=== PATIENT | male | born 1950 | race Caucasian/White ===

== ENCOUNTER 2018-10-19 08:37 | Outpatient (CLI) | payer BC ==
[2018-10-19 10:14] LABS: #Eosinphils 0.1 thou/uL (0.0-0.7); #Lymphocytes 1.4 thou/uL (1.20-3.40); #Monocytes 0.3 thou/uL (0.11-0.59); #Neutrophils 2.9 thou/uL (1.40-6.50); %Basophils 0.6 % (0.0-1.0); %Eosinophils 2.8 % (0.0-10.0); %Lymphocytes 29.1 % (21.0-51.0); %Monocytes 7.1 % (0.0-10.0); %Neutrophils 60.3 % (42.0-75.0); Hemoglobin 14.5 g/dL (14.0-18.0); Mean Corpuscular HGB CONC 35.3 g/dL (32.0-36.0); Mean Corpuscular Hemoglobin 30.5 pg (27.0-31.0); Mean Corpuscular Volume 86.4 fL (78.0-98.0); Mean Platelet Volume 7.5 fL (7.4-10.4); Platelet Count 139 thou/uL (130-400); RBC Distribution Width 11.8 % (11.5-14.5); Red Blood Cell (RBC) Count 4.75 mill/uL (4.70-6.10); White Blood Cell (WBC) Count 4.8 thou/uL (4.8-10.8)
[2018-10-19 10:16] LABS: Bilirubin Negative (Negative); Blood, Urine Negative (Negative); Glucose, Urine (Dipstick) Negative (Negative); Leukocyte Negative (Negative); Nitrite Negative (Negative); Protein, Urine (Dipstick) Negative (Neg-Trace); Urobilinogen 0.2 mg/dL (0.2-1.0)
[2018-10-19 10:19] LABS: Anion Gap 15 mmol/L (10-20); BUN (Urea Nitrogen) 19 mg/dL (8.4-25.7); Calc. Creatinine Clearance 0 mL/min (70-130); Calcium 9.2 mg/dL (7.8-10.44); Carbon Dioxide 21 mmol/L (23-31); Chloride 105 mmol/L (98-107); Estimated GFR-MDRD Greater than 90; Glucose 160 mg/dL (80-115); Sodium 137 mmol/L (136-145)
[2018-10-19 10:19] LABS: Clarity CLEAR (Clear)
[2018-10-19 10:26] LABS: Bacteria/HPF None Seen HPF (None Seen); Hyaline Casts/LPF NONE SEEN LPF (0-3 Hyaline); RBC/HPF None Seen HPF (0-3); Squamous Epithelial 0-3 HPF (0-3); WBC/HPF None Seen HPF (0-3)
--- NOTE | 2018-10-21 16:35 | EKG ---
Test Reason : Blood Pressure : / mmHG Vent. Rate : 064 BPM Atrial Rate : 064 BPM P-R Int : 174 ms QRS Dur : 102 ms QT Int : 448 ms P-R-T Axes : 032 079 057 degrees QTc Int : 462 ms Normal sinus rhythm Incomplete right bundle branch block Borderline ECG When compared with ECG of 30-JUL-2016 09:59, Nonspecific T wave abnormality no longer evident in Inferior leads Confirmed by DR. Anupama FUNES ([id number]) on 10/21/2018 4:35:00 PM Referred By: JOLLY Confirmed By:DR. Anupama FUNES
== END 2018-10-19 08:38 | disposition home or self-care (01) ==
LOC: LABBT 08:37
PROVIDERS: ATTEND Urology
DX: Z01.818 Encounter for other preprocedural examination (principal); N20.0 Calculus of kidney; N40.1 Benign prostatic hyperplasia with lower urinary tract symptoms
CPT/HCPCS: 80048; 81001; 85025; 87086; 93005; 93010

== ENCOUNTER 2018-10-21 05:56 | Day surgery (SDC) | payer BC ==
[2018-10-19 08:55] VITALS: BMI 35.9
--- NOTE | 2018-10-20 08:47 | HP ---
HISTORY OF PRESENT ILLNESS: The patient is a 67-year-old male, who has a long history of pain and triggering in his left index, middle, and little fingers. He has had persistent symptoms despite rest, restriction of activities, and previous injections. The patient is now interfering with day-to-day activities. He has had previous left ring finger trigger finger release in the past with good results. PAST HISTORY: Please see old chart. The patient is currently undergoing workup for microscopic hematuria by Dr. Munoz and will have a cystoscopy under the same anesthetic today for his left hand. He does have a history of cardiovascular disease with previous stent. He has no other major medical problems. CURRENT MEDICATIONS: Include; 1. Crestor. 2. Lovaza. 3. Thyroid. 4. Lisinopril. 5. Tylenol with Codeine. ALLERGIES: HE HAS NO KNOWN ALLERGIES. FAMILY HISTORY: Otherwise, unremarkable. SOCIAL HISTORY: Otherwise, unremarkable. REVIEW OF SYSTEMS: Otherwise, unremarkable. PHYSICAL EXAMINATION: GENERAL: Reveals a healthy heavyset male. HEENT: Unremarkable. NECK: Supple. CHEST: Clear. HEART: Regular rate and rhythm. ABDOMEN: Soft and nontender. RECTAL AND GENITAL: Deferred. EXTREMITIES: Pertinent findings related to the left hand, he has a healed incision over the palmar aspect of the ring finger A1 melody. There is tenderness over the flexor tendon sheath and A1 pulleys of the index, middle, and little fingers. There is full range of motion. There is triggering with motion of the index, middle, and little fingers. NEUROVASCULAR: Intact. There is good capillary refill. IMPRESSION: Trigger fingers; left index, middle, and little fingers. PLAN: Trigger finger release of the left index, middle, and little fingers under the same anesthetic as cystoscopy Dr. Munoz. The nature of the surgery, length of recovery, and potential complications such as infection, loss of motion, digital nerve injury, recurrence, and need for additional treatment and repeat surgery have been discussed in detail. Job ID: [id number]
[2018-10-21] MEDS ORDERED: Fentanyl 100 MCG/2 ML VIAL ONE (06:58)
[2018-10-21] MEDS ORDERED: Iothalamate Meglumine 60% 50 ML VIAL FS ONE (07:04)
[2018-10-21] MEDS ORDERED: Lidocaine 1% (PF) 30 ML VIAL ONE (07:04)
--- NOTE | 2018-10-21 11:09 | OP ---
DATE OF PROCEDURE: 10/21/2018 SERVICE: Urology. PREOPERATIVE DIAGNOSIS: BPH. POSTOPERATIVE DIAGNOSIS: BPH. PROCEDURE PERFORMED: Transrectal ultrasound with cystoscopy. INDICATIONS FOR PROCEDURE: Mr. Dunham is a 67-year-old white male with history of BPH and urinary difficulties. He is currently managed on medications, but does not want to remain on medications indefinitely and does not have complete relief of symptoms and medications alone. He had expressed interest in a surgical procedure to allow him to urinate better. He had been hesitant about undergoing the office cystoscopy and ultrasound in preparation for either TURP or UroLift, but he was having a trigger finger surgery with Dr. Muñoz and has elected to have the procedures done while he is asleep for his trigger finger surgery. I have discussed the procedure with him and he has agreed to proceed forward. DESCRIPTION OF PROCEDURE: After identification of armband verification of consent, the patient was brought back to the operating room, where he underwent general anesthesia with endotracheal intubation for his trigger finger surgery. He was then placed in the left lateral decubitus position and transrectal ultrasound was performed of his prostate. Ultrasound demonstrated a prostate measuring approximately 36.9 mL with a prostate with 4.7 cm. This was favorable for a UroLift. We then put the patient back into the supine position and cystoscopy was performed after sterile prep of the penis. The urethra was normal without strictures or lesions. The prostate was moderately obstructive with large collapsing lateral lobes. No significant median lobe. No intravesical extension and nothing that would indicate that he would not be a good candidate for UroLift. He would also be a good candidate for transurethral vaporization of the prostate with button electrode. The bladder was normal with orthotopic locations of the ureters and no lesions or stones within the bladder. The cystoscope was then removed, and the patient was straight catheterized to empty the bladder out with a 16-Pashto Henderson catheter. The catheter was removed after the bladder was empty. All instruments were removed and my portion of procedure was completed. The patient remained asleep for his trigger finger surgery, which Dr. Muñoz will dictate at a separate time. For my portion of procedure, complications none. ESTIMATED BLOOD LOSS: Minimal. RETAINED TUBES AND DRAINS: None. SPECIMENS: None. DISPOSITION: Once the patient has completed both of the surgeries, he will be dispositioned according to Dr. Muñoz's preference and I will see him on an outpatient basis to discuss either a UroLift or TURP at a later date. Job ID: [id number]
[2018-10-21] MEDS ORDERED: HYDROcodone/Acetaminophen 5/325 mg Tablet ONE (11:16)
[2018-10-21] MEDS ORDERED: ePHEDrine 50 MG/ML VIAL ONE (12:59)
[2018-10-21] MEDS ORDERED: Glycopyrrolate 0.2 MG/ML 5 ML SYRINGE ONE (12:59)
[2018-10-21] MEDS ORDERED: PROPOFOL 200 MG/20 ML VIAL ONE (12:59)
[2018-10-21] MEDS ORDERED: Dexamethasone 20 MG/5 ML VIAL ONE (12:59)
[2018-10-21] MEDS ORDERED: Rocuronium Bromide 10 MG/ML (10ML VIAL) ONE (12:59)
[2018-10-21] MEDS ORDERED: Ondansetron PF 4 MG/2 ML Vial ONE (12:59)
[2018-10-21] MEDS ORDERED: Lidocaine 1% PF 5 ML VIAL ONE (12:59)
--- NOTE | 2018-10-21 13:15 | OP ---
DATE OF PROCEDURE: 10/21/2018 ANESTHESIA: General. PREOPERATIVE DIAGNOSIS: Trigger fingers, left index, middle, and little fingers. POSTOPERATIVE DIAGNOSIS: Trigger fingers, left index, middle, and little fingers. PROCEDURE PERFORMED: Trigger finger release, left index, middle, and little fingers. DESCRIPTION OF PROCEDURE: This procedure was performed after Dr. Munoz performed cystoscopy and transrectal ultrasound of prostate. The patient was in the supine position and the left arm and hand prepped and draped in routine sterile fashion. The left arm was elevated and exsanguinated with an Esmarch bandage and the tourniquet inflated to 250 mmHg. The index finger was addressed first. A 1.5 cm transverse incision was made over the A1 melody of the index finger, carried down through the subcutaneous tissues. Bleeding points were controlled with Bovie cautery. Using sharp and blunt dissection, the flexor tendon sheath was identified and the digital neurovascular bundles were retracted and protected throughout the procedure. The proximal edge of the A1 melody was identified and then divided in a proximal to distal direction with small scissors. A small segment of the melody was also excised to make sure there was complete release of the melody. Both flexor tendons could then be pulled into the wound and there was full range of motion of the finger without any further triggering. An identical procedure was then performed on both the middle and little fingers. All wounds were then thoroughly irrigated. Metacarpal block of each finger was accomplished with 1% lidocaine 30 mL. After thorough irrigation, the wounds were closed with interrupted 3-0 nylon. A sterile bulky compressive dressing was applied. The tourniquet deflated after 35 minutes. The hand promptly pinked up. The patient was awakened and taken to the recovery room in stable condition. There were no apparent intraoperative complications. The estimated blood loss was negligible. The patient will be discharged home in satisfactory condition and started on ice, elevation, and given written wound care instructions. He has Tylenol No. 4 at home for pain. He will be rechecked in my office in 10 to 14 days or sooner if there are any problems prior to that time. Job ID: [id number]
== END 2018-10-21 11:38 | disposition home or self-care (01) ==
LOC: SDC 05:56
PROVIDERS: ATTEND Urology
PROC: 0TJB8ZZ Inspection of Bladder, Via Natural or Artificial Opening Endoscopic (ICD-10-PCS; principal; 2018-10-21)
PROC: 0LN80ZZ Release Left Hand Tendon, Open Approach (ICD-10-PCS; principal; 2018-10-21)
DX: M65.322 Trigger finger, left index finger (principal); M65.332 Trigger finger, left middle finger; M65.352 Trigger finger, left little finger; N40.0 Benign prostatic hyperplasia without lower urinary tract symptoms; I10 Essential (primary) hypertension; I48.91 Unspecified atrial fibrillation; E78.5 Hyperlipidemia, unspecified; E03.9 Hypothyroidism, unspecified; E66.9 Obesity, unspecified; Z68.35 Body mass index [BMI] 35.0-35.9, adult; Z95.1 Presence of aortocoronary bypass graft; Z79.84 Long term (current) use of oral hypoglycemic drugs; Z79.82 Long term (current) use of aspirin; Z79.899 Other long term (current) drug therapy; Z98.890 Other specified postprocedural states
CPT/HCPCS: J2001; J3010; Q9961

== ENCOUNTER 2018-12-07 04:50 | Outpatient (CLI) | payer BC ==
[2018-12-07 10:01] LABS: Hemoglobin 14.6 g/dL (14.0-18.0); Mean Corpuscular HGB CONC 35.5 g/dL (32.0-36.0); Mean Corpuscular Volume 87.5 fL (78.0-98.0); Mean Platelet Volume 7.1 fL (7.4-10.4); Platelet Count 139 thou/uL (130-400); RBC Distribution Width 11.8 % (11.5-14.5); Red Blood Cell (RBC) Count 4.71 mill/uL (4.70-6.10); White Blood Cell (WBC) Count 5.2 thou/uL (4.8-10.8)
[2018-12-07 10:03] LABS: Bilirubin Negative (Negative); Blood, Urine Negative (Negative); Clarity CLEAR (Clear); Glucose, Urine (Dipstick) Negative (Negative); Leukocyte Negative (Negative); Nitrite Negative (Negative); Protein, Urine (Dipstick) Negative (Neg-Trace); Urobilinogen 0.2 mg/dL (0.2-1.0); pH, Urine 5.5 (5.0-9.0)
[2018-12-07 10:05] LABS: Bacteria/HPF None Seen HPF (None Seen); Hyaline Casts/LPF 0-3 HYALINE CAST LPF (0-3 Hyaline); Pathc Cast-AUWi Flag 0.27 (0-2.49); RBC/HPF 0-3 HPF (0-3); Squamous Epithelial 0-3 HPF (0-3); WBC/HPF 0-3 HPF (0-3)
[2018-12-07 10:12] LABS: Prothrombin Time 13.2 SEC (12.0-14.7)
[2018-12-07 10:28] LABS: Anion Gap 15 mmol/L (10-20); BUN (Urea Nitrogen) 18 mg/dL (8.4-25.7); Calc. Creatinine Clearance 0 mL/min (70-130); Calcium 9.6 mg/dL (7.8-10.44); Carbon Dioxide 23 mmol/L (23-31); Chloride 104 mmol/L (98-107); Estimated GFR-MDRD 87; Glucose 205 mg/dL (80-115); Potassium 3.9 mmol/L (3.5-5.1); Sodium 138 mmol/L (136-145)
[2018-12-07 10:30] LABS: PTT 33.5 SEC (22.9-36.1)
== END 2018-12-07 04:51 | disposition home or self-care (01) ==
LOC: LABBT 04:50
PROVIDERS: ATTEND Urology
DX: Z01.818 Encounter for other preprocedural examination (principal); N40.0 Benign prostatic hyperplasia without lower urinary tract symptoms
CPT/HCPCS: 80048; 81001; 85027; 85610; 85730; 87086; 93005; 93010

== ENCOUNTER 2018-12-15 06:08 | Day surgery (SDC) | payer BC ==
[2018-12-07 09:48] VITALS: BMI 34.4
[2018-12-15] MEDS ORDERED: Levofloxacin 500 mg/D5W 100 ml Premix Bag ONE (07:21)
[2018-12-15] MEDS ORDERED: Midazolam HCl 2 mg/2 ml Vial ONE (07:23)
[2018-12-15] MEDS ORDERED: Fentanyl 100 MCG/2 ML VIAL ONE (07:24)
[2018-12-15] MEDS ORDERED: Propofol 500 MG/50 ML VIAL ONE (07:40)
[2018-12-15] MEDS ORDERED: Phenazopyridine HCl 97.5 MG TABLET ONE (08:39)
[2018-12-15] MEDS ORDERED: Oxybutynin 5 MG TAB ONE (08:39)
[2018-12-15] MEDS ORDERED: HYDROcodone/Acetaminophen 5/325 mg Tablet ONE ×2 (09:44→17:24)
[2018-12-15] MEDS ORDERED: B & O ONE (09:55)
--- NOTE | 2018-12-15 14:36 | OP ---
DATE OF PROCEDURE: 12/15/2018 SERVICE: Urology. PREOPERATIVE DIAGNOSIS: Benign prostatic hyperplasia with lower urinary tract symptoms. POSTOPERATIVE DIAGNOSIS: Benign prostatic hyperplasia with lower urinary symptoms. PROCEDURE PERFORMED: Prostatic urethral lift. INDICATIONS FOR PROCEDURE: Mr. Dunham is a 68-year-old white male with BPH and urinary symptoms. He is currently taking Flomax with partial resolution of his symptoms. He did not want to remain on medication indefinitely and elected for the UroLift procedure. We discussed the risks and benefits and after discussion, he has agreed to proceed forward. DESCRIPTION OF PROCEDURE: After identification of armband and verification of consent, the patient was brought back to the operating room, where he underwent total intravenous anesthesia. He was then placed in dorsal lithotomy position and prepped and draped in usual sterile fashion. After appropriate time-out, a 20-Gabonese rigid cystoscope was introduced per urethra to inspect the bladder and prostate. It appeared identical to the office cystoscopy, which I had done previously. The obturator was then removed and the UroLift device was then attached to the cystoscope. The first implant was positioned on the right side just distal to the bladder neck by approximately 1.5 cm. This was placed towards the anterior prostate by angling the implant approximately 20 degrees downward. Compression was obtained with the UroLift device, safety taken off, the needle deployed and the suture deployed, so that the Nitinol aspect was seated on the outer aspect of the prostate on the capsule. The device was then advanced forward approximately 2 to 3 mm, at which point, the marking on this suture came into view in the keyhole. The suture was then cut, leaving a good implant and compression of the initial implant. This was then again repeated on the contralateral aspect approximately 1.5 cm proximal to the bladder neck and again with two additional implants just proximal to the verumontanum. At this point, there appeared to be still a small bulge on the right distal prostate and the left more proximal prostate. Two additional implants were placed in the middle of these bulges to complete opening of the prostatic channel. Upon completion, bleeding was noted to be minimal. There was a nice channel from the bladder neck to the verumontanum. I felt that the patient would do very well. The cystoscope was removed and an 18-Gabonese Henderson catheter with 10 mL of sterile water into the balloon was passed with ease into the bladder. This was hooked up to a gravity bag. The patient then taken out of positioning, awakened, taken to PACU for recovery in stable condition. COMPLICATIONS: None. ESTIMATED BLOOD LOSS: Minimal. RETAINED TUBES AND DRAINS: An 18-Gabonese Henderson catheter. IMPLANTS: Six utilized. DISPOSITION: The patient will be discharged home. We will perform a voiding trial before he is discharged to see if he can urinate, if so then he can be discharged and will follow up with me in approximately a week. Job ID: [id number]
[2018-12-15] MEDS ORDERED: Lidocaine 1% PF 5 ML VIAL ONE (16:50)
[2018-12-15] MEDS ORDERED: PROPOFOL 200 MG/20 ML VIAL ONE (16:50)
== END 2018-12-15 17:50 | disposition home or self-care (01) ==
LOC: SDC 06:08
PROVIDERS: ATTEND Urology
PROC: 0T7D8DZ Dilation of Urethra with Intraluminal Device, Via Natural or Artificial Opening Endoscopic (ICD-10-PCS; principal; 2018-12-15)
DX: N40.1 Benign prostatic hyperplasia with lower urinary tract symptoms (principal); I25.10 Atherosclerotic heart disease of native coronary artery without angina pectoris; I10 Essential (primary) hypertension; E78.5 Hyperlipidemia, unspecified; M10.9 Gout, unspecified; I48.91 Unspecified atrial fibrillation; Z79.82 Long term (current) use of aspirin; Z79.84 Long term (current) use of oral hypoglycemic drugs; Z79.891 Long term (current) use of opiate analgesic; Z79.899 Other long term (current) drug therapy
CPT/HCPCS: 51798; C1889; J1956; J2001; J2250; J2704; J3010

== ENCOUNTER 2019-07-19 08:21 | Outpatient (CLI) | payer BC ==
--- NOTE | 2019-07-19 09:02 | RAD ---
RIGHT WRIST 3 VIEWS: HISTORY: Right wrist pain without injury. FINDINGS/IMPRESSION: No fracture, dislocation, or other significant osseous process. POS: [facility]
== END 2019-07-19 08:22 | disposition home or self-care (01) ==
LOC: BICRAD 08:21
PROVIDERS: ATTEND Family Medicine
DX: M25.531 Pain in right wrist (principal)

== ENCOUNTER 2020-12-06 14:00 | Outpatient (CLI) | payer BC ==
[~2020-12-06 14:00] MED LIST: Iopamidol 370 76% 100 ML VIAL ONE
== END 2020-12-06 14:01 | disposition home or self-care (01) ==
LOC: BICCT 14:00
PROVIDERS: ATTEND Urology
DX: N40.1 Benign prostatic hyperplasia with lower urinary tract symptoms (principal); N20.2 Calculus of kidney with calculus of ureter; N28.1 Cyst of kidney, acquired; K57.92 Diverticulitis of intestine, part unspecified, without perforation or abscess without bleeding; D35.01 Benign neoplasm of right adrenal gland
CPT/HCPCS: 74178; 82565; Q9967

== ENCOUNTER 2020-12-27 07:48 | Outpatient (CLI) | payer BC | END 2020-12-27 07:49 | disposition home or self-care (01) | LOC: ULT 07:48 | PROVIDERS: ATTEND Family Medicine | DX: E21.3 Hyperparathyroidism, unspecified (principal); E83.52 Hypercalcemia; E04.1 Nontoxic single thyroid nodule | CPT/HCPCS: 76536; 78072; A9500 ==

== ENCOUNTER 2021-01-30 09:46 | Outpatient (CLI) | payer BC ==
[~2021-01-30 09:46] MED LIST changes: -Iopamidol 370 76% 100 ML VIAL ONE; +Magnevist 469MG/ML 20 ML VIAL ONE
== END 2021-01-30 09:47 | disposition home or self-care (01) ==
LOC: MRI 09:46
PROVIDERS: ATTEND Family Medicine
DX: E21.3 Hyperparathyroidism, unspecified (principal); I67.82 Cerebral ischemia; E23.6 Other disorders of pituitary gland
CPT/HCPCS: 70553; A9579

== ENCOUNTER → 2024-08-21 | Day surgery (SDC) | payer MEDICARE | LOC: SDC 12:27 | PROVIDERS: ATTEND Physician Assistant Medical | PROC: 4A0B7BZ Measurement of Gastrointestinal Pressure, Via Natural or Artificial Opening (ICD-10-PCS; principal; 2024-08-21) | DX: K21.9 Gastro-esophageal reflux disease without esophagitis (principal); F45.8 Other somatoform disorders; I48.91 Unspecified atrial fibrillation | CPT/HCPCS: 91010 ==